=== PATIENT | male | born 1990 | race African-American/Black ===

== ENCOUNTER 2019-11-05 22:07 | Emergency (ER) | payer OTHER ==
[2019-11-05 22:13] VITALS: BP 117/72; PULSE 76; RESP 18; TEMP 98.3
--- NOTE | 2019-11-05 22:38 | ED ---
General Adult HPI - General Chief complaint: Abdominal Pain Stated complaint: Back Pain Time Seen by Provider: 11/05/19 22:20 Source: patient Mode of arrival: ambulatory Limitations: no limitations - History of Present Illness Initial comments: This patient is a 28-year-old man who presents to be evaluated for left testicular pain and mass. The patient states that around the middle of last week he notes that he was having some low back pain that he attributed to moving a couch for his girlfriend's mother. The patient then over the course of the ne xt couple of days and now is that he was having some pain and tenderness to the left testicle and also felt that there was a lump onto the distal portion of the testicle. When the symptoms did not resolve he felt that he should be seen here due to the pain. He notes that the pain is worse with palpation. it is somewhat relieved if he sits on the edge of a chair with his left leg extended. I the patient has not noted a change in urination. No penile discharge. No change in bowel movements. No fever or chills. -: days(s) Location: genitals Radiation: non-radiation Quality: aching Consistency: constant Improves with: other Worsens with: other (Palpating) Associated Symptoms: denies other symptoms Treatments Prior to Arrival: none - Related Data Previous Rx's Medication Instructions Recorded Doxycycline Hyclate 100 mg PO Q12H 14 Days #28 tab 11/05/19 Allergies Allergy/AdvReac Type Severity Reaction Status Date / Time No Known Allergies Allergy Verified 11/05/19 22:43 Review of Systems ROS Statement: Those systems with pertinent positive or pertinent negative responses have been documented in the HPI. ROS Other: All systems not noted in ROS Statement are negative. Constitutional: Denies: fever, chills Respiratory: Denies: cough, dyspnea Cardiovascular: Denies: chest pain, edema Gastrointestinal: Denies: abdominal pain, nausea, vomiting, diarrhea, constipation Genitourinary: Reports: as per HPI, testicular pain, testicular mass. Denies: dysuria, frequency, hematuria, discharge Musculoskeletal: Reports: as per HPI, back pain Skin: Denies: rash Neurological: Denies: headache, weakness, numbness Past Medical History Past Medical History: No Reported History History of Any Multi-Drug Resistant Organisms: None Reported Past Surgical History: No Surgical Hx Reported Smoking Status: Current every day smoker Past Alcohol Use History: None Reported Past Drug Use History: Marijuana General Exam Limitations: no limitations General appearance: alert, in no apparent distress Head exam: Present: atraumatic, normocephalic Eye exam: Present: normal appearance. Absent: scleral icterus, conjunctival injection Respiratory exam: Present: normal lung sounds bilaterally. Absent: respiratory distress, wheezes, rales, rhonchi, stridor Cardiovascular Exam: Present: regular rate, normal rhythm, normal heart sounds. Absent: systolic murmur, diastolic murmur, rubs, gallop GI/Abdominal exam: Present: soft. Absent: distended, tenderness, guarding, rebound, rigid, mass, pulsatile mass, hernia exam: Present: normal inspection, testicular tenderness, vertical testicular lie, circumcision, other (Left epididymal tenderness). Absent: urethral discharge, scrotal swelling Expanded exam: Testicular Tenderness: Left, Testicular Swelling: Left, Epididymal Tenderness: Left, Inguinal Lymphadenopathy: Left Extremities exam: Present: normal inspection, normal capillary refill. Absent: pedal edema, calf tenderness Back exam: Present: normal inspection. Absent: CVA tenderness (R), CVA tenderness (L), paraspinal tenderness, vertebral tenderness Neurological exam: Present: alert Skin exam: Present: warm, dry, intact, normal color. Absent: rash Course Vital Signs 11/05/19 22:10 Temperature 98.3 F Pulse Rate 76 Respiratory 18 Rate Blood Pressure 117/72 O2 Sat by Pulse 99 Oximetry Medical Decision Making - Lab Data Lab Results 11/05/19 Range/Units 22:47 Urine Color Yellow Urine Appearance Clear (Clear) Urine pH 6.0 (5.0-8.0) Ur Specific [place] 1.020 (1.001-1.035) Urine Protein Negative (Negative) Urine Glucose (UA) Negative (Negative) Urine Ketones Negative (Negative) Urine Blood Negative (Negative) Urine Nitrite Negative (Negative) Urine Bilirubin Negative (Negative) Urine Urobilinogen <2.0 (<2.0) mg/dL Ur Leukocyte Esterase Small (Negative) Urine RBC 2 (0-5) /hpf Urine WBC 27 H (0-5) /hpf Urine Mucus Rare H (None) /hpf Disposition Clinical Impression: Epididymitis Disposition: HOME SELF-CARE Condition: Good Prescriptions: Doxycycline Hyclate 100 mg PO Q12H 14 Days #28 tab Is patient prescribed a controlled substance at d/c from ED?: No Referrals: None,Stated [Primary Care Provider] - 1-2 days
[2019-11-05 23:06] LABS: Mucus,Urine Rare /hpf; RBC,Urine 2 /hpf (0-5); WBC,Urine 27 /hpf (0-5)
[2019-11-05 23:07] LABS: Appearance,Urine Clear (Clear); Bilirubin,Urine Negative (Negative); Blood,Urine Negative (Negative); Color,Urine Yellow; Glucose,Urine (UA) Negative (Negative); Ketones,Urine Negative (Negative); Leukocyte Esterase,Urine Small (Negative); Nitrite,Urine Negative (Negative); Protein,Urine Negative (Negative); Urobilinogen,Urine <2.0 mg/dL (<2.0)
--- NOTE | 2019-11-05 23:10 | US ---
EXAMINATION TYPE: US scrotum with doppler. Grayscale and color Doppler Duplex imaging performed of t he scrotum. DATE OF EXAM: 11/05/2019 COMPARISON: NONE CLINICAL HISTORY: L testicular mass. Pt states lump/ pain left testicle x 3-4 days EXAM MEASUREMENTS: TESTICLES: Right Testicle: 4.5 x 2.3 x 3.6 cm Left Testicle: 4.2 x 2.4 x 3.4 cm EPIDIDYMIS HEAD: Right Epididymis: 1.2 cm Left Epididymis: 1.1 cm Doppler performed to assess for testicular vascularity; good bilateral color flow and waveforms are s een. There is no evidence of testicular torsion. Presence of hydroceles: No Presence of varicoceles: No Left epididymal tail enlarged and hypervascular consistent with possible epididymitis IMPRESSION: No testicular torsion or mass. No free fluid. Hyperemia in the left epididymis with sligh t enlargement suggestive of epididymitis.
[2019-11-05] MEDS ORDERED: cefTRIAXone 250 MG VIAL IM STA (23:41)
[2019-11-05] MEDS ORDERED: DOXYCYCLINE 100 MG CAP PO STA (23:42)
[2019-11-06] MEDS ORDERED: ACET/COD 300 MG/30 MG STARTER PACK 6 TAB BTL PO STA (00:13)
[2019-11-06 16:09] LABS: C. trachomatis,PCR Positive (Neg,Equiv); Chlamydia trachomatis Source Urine; N. gonorrhoeae,PCR Negative (Neg,Equiv); Neisseria Source Urine
== END 2019-11-06 00:14 | disposition home or self-care (01) ==
LOC: EC 22:07
DX: N45.1 Epididymitis (principal); F17.200 Nicotine dependence, unspecified, uncomplicated
CPT/HCPCS: 76870; 81001; 87491; 87591; 93975; 96372; 99284